=== PATIENT | female | born 1990 | race Caucasian/White ===

== ENCOUNTER 2019-07-03 08:21 | Emergency (ER) | payer OTHER ==
[~2019-07-03] VITALS: Ht 160 cm; Wt 93.2 kg
[2019-07-03 08:28] VITALS: BP 133/88; TEMP 97.5
[2019-07-03] MEDS ORDERED: ZOFRAN ODT4 MG PO (08:54)
[2019-07-03 10:20] VITALS: PULSE 56
== END 2019-07-03 10:20 | disposition home or self-care (01) ==
LOC: COL.ER 08:21
DX: S06.0X0A Concussion without loss of consciousness, initial encounter (principal); W22.8XXA Striking against or struck by other objects, initial encounter; Y92.59 Other trade areas as the place of occurrence of the external cause

== ENCOUNTER 2019-07-15 12:53 | Outpatient (RCR) | payer OTHER ==
[~2019-07-15 12:53] MED LIST: ZOFRAN ODT4 MG PO
== END 2019-09-29 13:12 | disposition home or self-care (01) ==
LOC: WSOH 12:53
DX: S00.03XA Contusion of scalp, initial encounter (principal); S06.0X0A Concussion without loss of consciousness, initial encounter; Y99.0 Civilian activity done for income or pay